=== PATIENT | male | born 1940 | race Caucasian/White ===

== ENCOUNTER 2022-04-24 10:54 | Outpatient (CLI) | payer MEDICARE, BC | END 2022-04-24 10:55 | disposition home or self-care (01) | LOC: CSHLAB 10:54 | PROVIDERS: ATTEND Family Medicine | DX: Z20.822 Contact with and (suspected) exposure to COVID-19 (principal) | CPT/HCPCS: 87811 ==

== ENCOUNTER 2022-04-28 10:37 | Outpatient (CLI) | payer MEDICARE, BC | END 2022-04-28 10:38 | disposition home or self-care (01) | LOC: CSHCP 10:37 | PROVIDERS: ATTEND Internal Medicine Critical Care Medicine | DX: R06.09 Other forms of dyspnea (principal); R06.02 Shortness of breath; J44.9 Chronic obstructive pulmonary disease, unspecified; R91.8 Other nonspecific abnormal finding of lung field | CPT/HCPCS: 71046; 94060; 94726; 94729; 94760 ==

== ENCOUNTER 2022-07-31 08:53 | Outpatient (CLI) | payer MEDICARE, BC ==
[2022-07-31] MEDS ORDERED: Iopamidol 300 61% 100 ML VIAL FS ONE (12:41)
== END 2022-07-31 08:54 | disposition home or self-care (01) ==
LOC: CSHCT 08:53
PROVIDERS: ATTEND Internal Medicine Hematology & Oncology
DX: C34.90 Malignant neoplasm of unspecified part of unspecified bronchus or lung (principal); Z97.8 Presence of other specified devices; R91.8 Other nonspecific abnormal finding of lung field; S22.31XD Fracture of one rib, right side, subsequent encounter for fracture with routine healing; K80.20 Calculus of gallbladder without cholecystitis without obstruction
CPT/HCPCS: 71260; 82565; Q9967

== ENCOUNTER 2023-06-22 16:27 | Outpatient (CLI) | payer MEDICARE, BC | END 2023-06-22 16:28 | disposition home or self-care (01) | LOC: CSHRAD 16:27 | PROVIDERS: ATTEND Internal Medicine Hematology & Oncology | DX: C34.31 Malignant neoplasm of lower lobe, right bronchus or lung (principal); J90 Pleural effusion, not elsewhere classified; R91.8 Other nonspecific abnormal finding of lung field | CPT/HCPCS: 71046 ==